=== PATIENT | male | born 1950 | race Caucasian/White ===

== ENCOUNTER 2021-07-17 11:11 | Outpatient (CLI) | payer OTHER ==
[2021-07-17 12:47] LABS: CREATININE 1.52 mg/dL (0.7-1.3)
[2021-07-17] MEDS ORDERED: OMNIPAQUE 350 MG/ML, 100ML BOTTLE ONE (13:47)
== END 2021-07-17 23:59 | disposition home or self-care (01) ==
LOC: RAD 11:11
PROVIDERS: ATTEND Surgery
DX: I71.2 Thoracic aortic aneurysm, without rupture (principal); I70.203 Unspecified atherosclerosis of native arteries of extremities, bilateral legs; I71.4 Abdominal aortic aneurysm, without rupture; R91.8 Other nonspecific abnormal finding of lung field
CPT/HCPCS: 36415; 71275; 74174; 82565; Q9967